=== PATIENT | male | born 1965 | race Caucasian/White ===

== ENCOUNTER 2017-02-10 11:02 | Emergency (ER) | payer MEDICARE, OTHER ==
[2017-02-10] MEDS ORDERED: KETOROLAC 30 MG/ML 1 ML VIAL IM STA (12:09)
[2017-02-10 12:27] VITALS: RESP 18
--- NOTE | 2017-02-10 13:07 | XR ---
EXAMINATION TYPE: XR sacrum coccyx DATE OF EXAM: 02/10/2017 1:01 PM COMPARISON: NONE HISTORY: Buttock pain TECHNIQUE: 3 views FINDINGS: Segments have normal alignment. Lower lumbar spine appears intact. Sacroiliac joints appear normal. IMPRESSION: Negative sacrum and coccyx exam. Surgical clip noted in the pelvis on the right side.
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
[2017-02-10 14:12] VITALS: BP 142/95; PULSE 90; TEMP 97.6
== END 2017-02-10 14:12 | disposition home or self-care (01) ==
LOC: EC 11:02
DX: M53.3 Sacrococcygeal disorders, not elsewhere classified (principal); F17.200 Nicotine dependence, unspecified, uncomplicated; Z88.6 Allergy status to analgesic agent; Z79.899 Other long term (current) drug therapy; V17.4XXA Pedal cycle driver injured in collision with fixed or stationary object in traffic accident, initial encounter; Y93.55 Activity, bike riding
CPT/HCPCS: 99283; 96372; 36415; 82272; 72220; J1885

== ENCOUNTER 2017-04-27 12:43 | Emergency (ER) | payer MEDICARE, OTHER ==
[2017-04-27] MEDS ORDERED: LORazepam 1 MG TAB PO STA (13:09)
--- NOTE | 2017-04-27 13:12 | ED ---
General Adult HPI - General Chief complaint: Back Pain/Injury Stated complaint: ETOH poisoning? Time Seen by Provider: 04/27/17 13:00 Source: patient, RN notes reviewed Mode of arrival: ambulatory Limitations: no limitations - History of Present Illness Initial comments: Patient is a 51-year-old male significant past medical history for alcoholism, who presents emergency room today with a chief complaint of a "orange color" in his urine last night. He states he was drinking had a beer noticed that his urine appeared to be orange. States she drank an unclear that it seemed to be a normal color. States he fell a every 72 difficult time urinating not completely emptying. Patient states that in the middle of night he woke up a few times with no difficulty and did not notice any change in his urine at that time. He woke up this morning and he states that he thought he could drink another beer or come here to the emergency room to see if everything was okay patient does admit to shaking due to his alcohol consumption. He admits to some lower back pain at this time. He denies any other complaints. Patient denies any recent fever, chills, shortness of breath, chest pain, abdominal pain , nausea or vomiting, numbness or tingling, hematuria, constipation or diarrhea , headaches or visual changes, or any other complaints. - Related Data Previous Rx's Medication Instructions Recorded Ciprofloxacin HCl [Cipro] 500 mg PO Q12HR #20 day 04/27/17 Ondansetron Odt [Zofran ODT] 4 mg PO Q8HR PRN #20 tab 04/27/17 chlordiazePOXIDE HCl [Librium] 25 mg PO DIRECTED #22 capsule 04/27/17 cloNIDine HCL [Catapres] 0.1 mg PO BID #6 tab 04/27/17 Allergies Allergy/AdvReac Type Severity Reaction Status Date / Time aspirin Allergy Unknown Verified 04/27/17 13:34 Review of Systems ROS Statement: Those systems with pertinent positive or pertinent negative responses have been documented in the HPI. ROS Other: All systems not noted in ROS Statement are negative. Past Medical History Past Medical History: Liver Disease Additional Past Medical History / Comment(s): ETOH, liver damage History of Any Multi-Drug Resistant Organisms: None Reported Past Surgical History: Cholecystectomy Additional Past Surgical History / Comment(s): [place] Shunt post gallbladder removal Past Anesthesia/Blood Transfusion Reactions: No Reported Reaction Past Psychological History: Anxiety Smoking Status: Current every day smoker Past Alcohol Use History: Daily Past Drug Use History: None Reported - Past Family History Mother History Unknown: Yes Family Medical History: No Reported History Father History Unknown: Yes General Exam - General Exam Comments Initial Comments: General: The patient is awake and alert, in no distress, and does not appear acutely ill. Eye: Pupils are equal, round and reactive to light, extra-ocular movements are intact. No nystagmus. There is normal conjunctiva bilaterally. No signs of icterus. Ears, nose, mouth and throat: There are moist mucous membranes and no oral lesions. Neck: The neck is supple, there is no tenderness or JVD. Cardiovascular: There is a regular rate and rhythm. No murmur, rub or gallop is appreciated. Respiratory: Lungs are clear to auscultation, respirations are non-labored, breath sounds are equal. No wheezes, stridor, rales, or rhonchi. Gastrointestinal: Soft, non-distended, non-tender abdomen without masses or organomegaly noted. There is no rebound or guarding present. No CVA tenderness. Bowel sounds are unremarkable. Musculoskeletal: Normal ROM, no tenderness. Strength 5/5. Sensation intact. Pulses equal bilaterally 2+. Neurological: A&O x 3. CN II-XII intact, There are no obvious motor or sensory deficits. Coordination appears grossly intact. Speech is normal. Skin: Skin is warm and dry and no rashes or lesions are noted. Psychiatric: Cooperative, appropriate mood & affect, normal judgment. Limitations: no limitations Course Vital Signs 04/27/17 04/27/17 04/27/17 12:51 13:30 14:08 Temperature 99.7 F H Pulse Rate 125 H 120 H 95 Respiratory 22 20 111 H Rate Blood Pressure 167/103 153/102 143/113 O2 Sat by Pulse 99 98 100 Oximetry 04/27/17 14:54 Temperature 99.1 F Pulse Rate 95 Respiratory 18 Rate Blood Pressure 137/91 O2 Sat by Pulse 98 Oximetry Medical Decision Making - Medical Decision Making Case discussed in detail with attending physician Dr. Orlando. Patient reexamined at this time shows no signs of distress. Resting comfortably in the stretcher. Patient's labs been reviewed. Patient does have 23 red cells in urine. Does have calcium oxalate. CT of the abdomen and pelvis performed showing evidence for sinusitis and hospital for fatty liver. Results were discussed with the patient. This time shows an comfortably. Patient will be given antibiotics of ciprofloxacin cover for infection. He is advised close follow-up with family doctor neurologist. Advised to follow-up for further concerns and rule out any cancers. Advised patient about importance of his drinking. Patient states he would like to stop. Patient given medications for alcohol withdrawal. Given Librium, Zofran, clonidine. Is advised return if any symptoms increase or worsen. States understanding and is in agreement. - Lab Data Result diagrams: 04/27/17 14:05 04/27/17 14:05 Lab Results 04/27/17 04/27/17 04/27/17 Range/Units 13:37 14:05 14:05 WBC 6.6 (3.8-10.6) k/uL RBC 4.54 (4.30-5.90) m/uL Hgb 14.9 (13.0-17.5) gm/dL Hct 43.5 (39.0-53.0) % MCV 95.8 (80.0-100.0) fL MCH 32.8 (25.0-35.0) pg MCHC 34.2 (31.0-37.0) g/dL RDW 14.0 (11.5-15.5) % Plt Count 80 L (150-450) k/uL Neutrophils % 70 % Lymphocytes % 17 % Monocytes % 6 % Eosinophils % 3 % Basophils % 2 % Neutrophils # 4.6 (1.3-7.7) k/uL Lymphocytes # 1.1 (1.0-4.8) k/uL Monocytes # 0.4 (0-1.0) k/uL Eosinophils # 0.2 (0-0.7) k/uL Basophils # 0.1 (0-0.2) k/uL Polychromasia Present Sodium 135 L (137-145) mmol/L Potassium 4.1 (3.5-5.1) mmol/L Chloride 94 L (98-107) mmol/L Carbon Dioxide 26 (22-30) mmol/L Anion Gap 15 mmol/L BUN 10 (9-20) mg/dL Creatinine 0.61 L (0.66-1.25) mg/dL Est GFR (MDRD) Af Amer >60 (>60 ml/min/1.73 sqM) Est GFR (MDRD) Non-Af >60 (>60 ml/min/1.73 sqM) Glucose 125 H (74-99) mg/dL Calcium 10.5 H (8.4-10.2) mg/dL Total Bilirubin 1.8 H (0.2-1.3) mg/dL AST 103 H (17-59) U/L ALT 55 (21-72) U/L Alkaline Phosphatase 104 (38-126) U/L Total Protein 9.4 H (6.3-8.2) g/dL Albumin 5.3 H (3.5-5.0) g/dL Amylase 124 H (30-110) U/L Lipase 296 (23-300) U/L Urine Color Crane Urine Appearance Clear (Clear) Urine pH 6.5 (5.0-8.0) Ur Specific [place] 1.023 (1.001-1.035) Urine Protein 3+ H (Negative) Urine Glucose (UA) Negative (Negative) Urine Ketones 1+ H (Negative) Urine Blood Small H (Negative) Urine Nitrite Negative (Negative) Urine Bilirubin 1+ H (Negative) Urine Urobilinogen 6.0 (<2.0) mg/dL Ur Leukocyte Esterase Trace H (Negative) Urine RBC 23 H (0-5) /hpf Urine WBC <1 (0-5) /hpf Calcium Oxalate Crystal Few H (None) /hpf Urine Bacteria Rare H (None) /hpf Hyaline Casts 2 (0-2) /lpf Urine Mucus Occasional H (None) /hpf Serum Alcohol <10 mg/dL Disposition Clinical Impression: Cystitis, Hematuria, Alcohol withdrawal Disposition: HOME SELF-CARE Condition: Good Instructions: Hematuria (ED), Alcohol Withdrawal (ED) Additional Instructions: Please follow-up with family doctor urologist as discussed over the next 2 days. Please follow-up urologist for blood in her urine and begin antibiotic to ciprofloxacin as discussed. Please use medications of Librium, Zofran, clonidine for your help. Please return to emergency room if any symptoms increase or worsen or for any other concerns. Prescriptions: chlordiazePOXIDE HCl [Librium] 25 mg PO DIRECTED #22 capsule Ciprofloxacin HCl [Cipro] 500 mg PO Q12HR #20 day cloNIDine HCL [Catapres] 0.1 mg PO BID #6 tab Ondansetron Odt [Zofran ODT] 4 mg PO Q8HR PRN #20 tab PRN Reason: Nausea Referrals: Moshe Singer MD [Primary Care Provider] - 1-2 days Shaun Purvis MD [STAFF PHYSICIAN] - 1-2 days Time of Disposition: 16:04
[2017-04-27] MEDS ORDERED: SODIUM CHLORIDE 0.9% 1,000 ML IV STA (13:33)
[2017-04-27 13:54] LABS: Appearance,Urine Clear (Clear); Bacteria,Urine Rare /hpf; Bilirubin,Urine 1+ (Negative); Calcium Oxalate Crystals,Urine Few /hpf; Glucose,Urine (UA) Negative (Negative); Ketones,Urine 1+ (Negative); Leukocyte Esterase,Urine Trace (Negative); Mucus,Urine Occasional /hpf; Nitrite,Urine Negative (Negative); PH, Urine 6.5 (5.0-8.0); Particle Count 5991; Protein,Urine 3+ (Negative); RBC,Urine 23 /hpf (0-5); Specific Gravity,Urine 1.023 (1.001-1.035); UA Billing (MACRO vs. MICRO) MICRO; WBC,Urine <1 /hpf (0-5)
[2017-04-27 14:15] LABS: Basophils # (A) 0.1 k/uL (0-0.2); Basophils % (A) 2 %; CH 33.4; Eosinophils # (A) 0.2 k/uL (0-0.7); Eosinophils % (A) 3 %; HCT 43.5 % (39.0-53.0); HDW 2.27; HGB 14.9 gm/dL (13.0-17.5); Luc # (Auto) 0.12; Luc % (Auto) 2; Lymphocytes # (A) 1.1 k/uL (1.0-4.8); Lymphocytes % (A) 17 %; MCH 32.8 pg (25.0-35.0); MCHC 34.2 g/dL (31.0-37.0); MCV 95.8 fL (80.0-100.0); Mean Platelet Volume 7.9; Monocytes # (A) 0.4 k/uL (0-1.0); Monocytes % (A) 6 %; Neutrophils # (A) 4.6 k/uL (1.3-7.7); Neutrophils % (A) 70 %; RBC 4.54 m/uL (4.30-5.90); WBC 6.6 k/uL (3.8-10.6); WBC (Perox) 6.23
[2017-04-27 14:31] LABS: Polychromasia Present
[2017-04-27 14:37] LABS: ALT 55 U/L (21-72); AST 103 U/L (17-59); Alcohol <10 mg/dL; Alkaline Phosphatase 104 U/L (38-126); Amylase 124 U/L (30-110); Anion Gap 15 mmol/L; Blood Urea Nitrogen 10 mg/dL (9-20); Calcium 10.5 mg/dL (8.4-10.2); Carbon Dioxide 26 mmol/L (22-30); Chloride 94 mmol/L (98-107); Glucose 125 mg/dL (74-99); Non-African American GFR(MDRD) >60 (>60 ml/min/1.73 sqM); Sodium 135 mmol/L (137-145); Total Bilirubin 1.8 mg/dL (0.2-1.3); Total Protein 9.4 g/dL (6.3-8.2)
[2017-04-27 14:39] LABS: Potassium 4.1 mmol/L (3.5-5.1)
--- NOTE | 2017-04-27 15:55 | CT ---
EXAMINATION TYPE: CT abdomen pelvis wo con DATE OF EXAM: 04/27/2017 HISTORY: Difficulty urinating, shaking, and nausea. Hx of liver disease. CT DLP: 422.7 mGycm. Automated Exposure Control for Dose Reduction was Utilized. TECHNIQUE: CT scan of the abdomen and pelvis is performed without oral or IV contrast. COMPARISON: NONE FINDINGS: Within the limitations of a non-contrast study, the following observations are made. LUNG BASES: No significant abnormality is appreciated. LIVER/GB: Liver is diffusely low dense consistent with fatty infiltration. Cholecystectomy clips are present. PANCREAS: No significant abnormality is seen. SPLEEN: No significant abnormality is seen. ADRENALS: No significant abnormality is seen. KIDNEYS: No renal stones or hydronephrosis is evident bilaterally. No intraluminal calculus and bladd er is seen. Bladder wall thickness is 4 mm which is upper limits of normal for poorly distended bladd er. Given patient's symptoms would correlate for cystitis. BOWEL: Normal-appearing appendix is seen from cecum. No suspicious small or large bowel dilatation is present. GENITAL ORGANS: Prostate gland is felt upper limits of normal. LYMPH NODES: No greater than 1cm abdominal or pelvic lymph nodes are appreciated. OSSEOUS STRUCTURES: Spine is straightened on sagittal images. OTHER: Peritoneal dialysis catheter is present terminating in the upper pelvis. Mild to moderate calcified atherosclerotic change of abdominal aorta is present. IMPRESSION: Possible cystitis, clinical and urine lab correlation advised. Prominent fatty infiltrati on of liver noted. No acute finding otherwise identified to account for patient's symptoms.
[2017-04-27 16:25] VITALS: BP 134/89; PULSE 85; RESP 16; TEMP 98.9
== END 2017-04-27 16:30 | disposition home or self-care (01) ==
LOC: EC 12:43
DX: N30.91 Cystitis, unspecified with hematuria (principal); F10.239 Alcohol dependence with withdrawal, unspecified; M54.5 Low back pain; F17.200 Nicotine dependence, unspecified, uncomplicated; Z88.6 Allergy status to analgesic agent; Z90.49 Acquired absence of other specified parts of digestive tract
CPT/HCPCS: 36415; 51798; 74176; 80053; 80320; 81001; 82150; 83690; 85025; 87086; 96360; 99284